=== PATIENT | female | born 1950 | race Caucasian/White ===

== ENCOUNTER 2021-07-02 17:53 | Emergency (ER) | payer MEDICARE, OTHER ==
[~2021-07-02] VITALS: Ht 157.5 cm; Wt 67.8 kg
[2021-07-02] MEDS ORDERED: AMOX TR-K CLV1 EAC2 PO (19:43)
[2021-07-02] MEDS ORDERED: BACITRACIN ZINC 0.9GM TP ONE (19:45)
[2021-07-02] MEDS ORDERED: AMOXICILLIN/CLAVULANATE K 875 MG TAB ONE (19:46)
[2021-07-02 19:48] VITALS: BP 140/66
[2021-07-02] MEDS ORDERED: BACITRACIN ZINC 15 GM OINT TOP SCH (20:00)
[2021-07-02] MEDS ORDERED: AMOXICILLIN/CLAVULANATE K 875 MG TAB PO SCH (20:00)
== END 2021-07-02 19:48 | disposition home or self-care (01) ==
LOC: FSED 18:10
DX: S61.551A Open bite of right wrist, initial encounter (principal); S60.472A Other superficial bite of right middle finger, initial encounter; S60.474A Other superficial bite of right ring finger, initial encounter; W54.0XXA Bitten by dog, initial encounter; Y92.098 Other place in other non-institutional residence as the place of occurrence of the external cause; I10 Essential (primary) hypertension; Z87.19 Personal history of other diseases of the digestive system
CPT/HCPCS: 99283